=== PATIENT | female | born 1985 | race Caucasian/White ===

== ENCOUNTER 2016-10-19 15:11 | Emergency (ER) | payer MEDICAID ==
[~2016-10-19] VITALS: Ht 177.8 cm; Wt 105.0 kg
[2016-10-19 15:26] VITALS: BP 123/75
[2016-10-19] MEDS ORDERED: ARIP10TA14 PO (15:26)
[2016-10-19] MEDS ORDERED: ESCI10TA54 PO (15:26)
[2016-10-19] MEDS ORDERED: IBUP-1509 PO (15:26)
== END 2016-10-19 21:30 | disposition left against medical advice (07) ==
LOC: ER 16:17
DX: R42 Dizziness and giddiness (principal); F41.9 Anxiety disorder, unspecified; F32.9 Major depressive disorder, single episode, unspecified

== ENCOUNTER 2017-04-06 19:48 | Emergency (ER) | payer MEDICAID ==
[~2017-04-06] VITALS: Ht 177.8 cm; Wt 105.0 kg
[~2017-04-06 19:48] MED LIST: ABIL10 PO; ESCI10TA54 PO; IBUP-2028 PO
[2017-04-07 01:30] VITALS: BP 127/85
== END 2017-04-07 01:30 | disposition home or self-care (01) ==
LOC: ER 19:49
DX: F41.0 Panic disorder [episodic paroxysmal anxiety] (principal); F43.0 Acute stress reaction; R03.0 Elevated blood-pressure reading, without diagnosis of hypertension; Z76.0 Encounter for issue of repeat prescription
CPT/HCPCS: 99284

== ENCOUNTER 2017-05-08 16:25 | Emergency (ER) | payer MEDICAID ==
[~2017-05-08] VITALS: Ht 177.8 cm; Wt 105.0 kg
[2017-05-09] MEDS ORDERED: ONDANSETRON 4MG ODT PO STA (02:45)
[2017-05-09] MEDS ORDERED: KETOROLAC 30MG/ML VIAL IM STA (02:45)
[2017-05-09 03:10] LABS: BASOPHILS % 0.7 % (0.0-2.0); EOSINOPHILS % 0.4 % (0.0-5.0); HEMATOCRIT. 31.8 % (36.0-48.0); HEMOGLOBIN. 10.1 g/dL (12.0-16.0); LYMPHOCYTES % 19.3 % (20.0-50.0); MEAN CORPUSCULAR VOLUME 69.2 fL (81.0-99.0); MEAN PLATELET VOLUME 8.7 fl (7.4-10.4); MONOCYTES % 5.9 % (2.0-8.0); NEUTROPHILS % 73.7 % (40.0-76.0); PLATELET 322 x1000/uL (130-400); RED BLOOD CELL COUNT 4.59 mill/uL (4.2-5.4); RED CELL DISTRIBUTION WIDTH 20.6 % (11.6-14.6)
[2017-05-09 03:12] LABS: INR 1.1; PROTHROMBIN TIME 11.8 sec (9.4-11.6)
[2017-05-09 03:19] LABS: CARBON DIOXIDE 23 mEq/L (21-32); CHLORIDE 105 mEq/L (98-107); ETHANOL BLOOD < 10 mg/dL
[2017-05-09 03:46] LABS: CLARITY URINE CLOUDY (CLEAR); COLOR URINE YELLOW (YELLOW); GLUCOSE URINE NEGATIVE (NEGATIVE); KETONES URINE 2+ (NEGATIVE); LEUKOCYTE ESTERASE URINE 1+ (NEGATIVE); NITRITE URINE NEGATIVE (NEGATIVE); OCCULT BLOOD URINE 3+ (NEGATIVE); PH URINE 5.5 (4.5-8.0); PROTEIN URINE 1+ (NEGATIVE); SPECIFIC GRAVITY URINE 1.025 (1.005-1.030); UROBILINOGEN URINE 0.2 E.U./dL (0.2-1.0)
[2017-05-09 04:05] LABS: *AMPHETAMINES SCREEN URINE NEGATIVE (NEGATIVE); *BARBITURATES SCREEN URINE NEGATIVE (NEGATIVE); *BENZODIAZEPINES SCREEN URINE NEGATIVE (NEGATIVE); *COCAINE SCREEN URINE NEGATIVE (NEGATIVE); CANNABINOID URINE SCREEN NEGATIVE (NEGATIVE); METHADONE URINE SCREEN NEGATIVE (NEGATIVE); OPIATES URINE SCREEN NEGATIVE (NEGATIVE); PHENCYCLIDINE URINE SCREEN NEGATIVE (NEGATIVE)
[2017-05-09 04:49] LABS: PLATELET ESTIMATE NORMAL
[2017-05-09 04:51] VITALS: BP 125/81
== END 2017-05-09 04:54 | disposition home or self-care (01) ==
LOC: ER 16:25
DX: N39.0 Urinary tract infection, site not specified (principal); K59.00 Constipation, unspecified; J45.909 Unspecified asthma, uncomplicated
CPT/HCPCS: 36415; 74000; 80053; 80305; 81001; 81025; 83690; 85025; 85610; 96372; 99285; G0482; J1885; Q0162; A4315